=== PATIENT | male | born 2000 | race Two or more races ===

== ENCOUNTER 2024-08-08 12:51 | Emergency (ER) | payer MEDICAID ==
[~2024-08-08] VITALS: Ht 177.8 cm; Wt 95.3 kg
[2024-08-08 13:24] VITALS: BP 134/69; TEMP 98.2
[2024-08-08] MEDS ORDERED: diphenhydrAMINE HCL 25 MG CAPSULE ONE (14:03)
[2024-08-08] MEDS ORDERED: METOCLOPRAMIDE HCL 10 MG TABLET ONE (14:03)
[2024-08-08] MEDS ORDERED: ACETAMINOPHEN ES 500 MG TABLET ONE (14:03)
[2024-08-08] MEDS: METOCLOPRAMIDE HCL 10 MG TABLET PO ONE (14:06)
[2024-08-08] MEDS: diphenhydrAMINE HCL 25 MG CAPSULE PO ONE (14:06)
[2024-08-08] MEDS: ACETAMINOPHEN ES 500 MG TABLET PO ONE (14:06)
[2024-08-08 14:07] VITALS: O2SAT 98
== END 2024-08-08 14:07 | disposition home or self-care (01) ==
LOC: ER 12:59
DX: R51.9 Headache, unspecified (principal); R11.0 Nausea; M54.2 Cervicalgia
CPT/HCPCS: 99284; Q0163; J8597

== ENCOUNTER 2024-08-17 02:46 | Emergency (ER) | payer MEDICAID ==
[~2024-08-17] VITALS: Ht 177.8 cm; Wt 86.2 kg
[2024-08-17 03:56] VITALS: BP 109/73; TEMP 98.1; O2SAT 98
== END 2024-08-17 04:17 | disposition left against medical advice (07) ==
LOC: ER 02:50
DX: M54.2 Cervicalgia (principal); Z53.29 Procedure and treatment not carried out because of patient's decision for other reasons